=== PATIENT | female | born 1970 | race Caucasian/White ===

== ENCOUNTER 2017-03-07 12:54 | Emergency (ER) | payer BC, OTHER ==
[~2017-03-07] VITALS: Ht 165.1 cm; Wt 87.3 kg
[~2017-03-07 12:54] MED LIST: /TRAZ15TA PO; KLON0.5T PO; PROZ20CA11 PO
[2017-03-07] MEDS ORDERED: CITA20TA4 (13:04)
[2017-03-07] MEDS ORDERED: LISI10TA4 (13:04)
[2017-03-07] MEDS ORDERED: CLON0.5T (13:04)
[2017-03-07 14:03] LABS: MEAN CORPUSCULAR HEMOGLOBIN 30.2 pg (27.0-33.0); MEAN CORPUSCULAR HGB CONC 34.2 g/dl (32.0-36.5); MEAN CORPUSCULAR VOLUME 88.3 fl (80.0-96.0); RED CELL DISTRIBUTION WIDTH 14.4 % (11.5-14.5); WHITE BLOOD COUNT 7.5 K/mm3 (4.0-10.0)
[2017-03-07 14:11] LABS: METHADONE URINE NEGATIVE (NEGATIVE)
[2017-03-07 14:41] LABS: ALBUMIN 3.4 GM/DL (3.2-5.2); ALBUMIN/GLOBULIN RATIO 1.03 (1.00-1.93); ALKALINE PHOSPHATASE 80 U/L (45-117); ALT/SGPT 20 U/L (12-78); ANION GAP 5 MEQ/L (8-16); AST/SGOT 16 U/L (15-37); BILIRUBIN,DIRECT < 0.1 MG/DL (0.0-0.2); BILIRUBIN,TOTAL 0.3 MG/DL (0.2-1.0); BLOOD UREA NITROGEN 9 MG/DL (7-18); CALCIUM LEVEL 8.7 MG/DL (8.5-10.1); CARBON DIOXIDE LEVEL 28 MEQ/L (21-32); CHLORIDE LEVEL 108 MEQ/L (98-107); CREATININE FOR GFR 0.62 MG/DL (0.55-1.02); GLOMERULAR FILTRATION RATE > 60.0 (>58); GLUCOSE, FASTING 88 MG/DL (70-105); POTASSIUM SERUM 4.9 MEQ/L (3.5-5.1); SODIUM LEVEL 141 MEQ/L (136-145); TOTAL PROTEIN 6.7 GM/DL (6.4-8.2)
[2017-03-07] MEDS ORDERED: ATIV1TAB10 PO (14:49)
[2017-03-07 15:16] VITALS: BP 155/83
== END 2017-03-07 15:17 | disposition home or self-care (01) ==
LOC: M ED 12:54
DX: F32.9 Major depressive disorder, single episode, unspecified (principal); I10 Essential (primary) hypertension; F17.200 Nicotine dependence, unspecified, uncomplicated; F12.10 Cannabis abuse, uncomplicated; Z79.899 Other long term (current) drug therapy

== ENCOUNTER 2017-06-12 10:45 | Emergency (ER) | payer OTHER ==
[~2017-06-12] VITALS: Ht 172.7 cm; Wt 81.8 kg
[~2017-06-12 10:45] MED LIST changes: +ATIV1TAB10 PO; +CITA20TA4; +CLON0.5T; +LISI10TA4
[2017-06-12 12:03] LABS: BASO # 0.1 10^3/uL (0.0-0.2); BASO % 0.6 % (0.0-1.0); EOS # 0.2 10^3/uL (0.0-0.50); EOS % 1.9 % (0.0-3.0); IMMATURE GRANULOCYTE % 0.3 % (0-0); LYMPH # 1.3 10^3/uL (1.5-4.5); LYMPH % 13.8 % (24.0-44.0); MEAN CORPUSCULAR HEMOGLOBIN 29.1 pg (27.0-33.0); MEAN CORPUSCULAR HGB CONC 33.2 g/dl (32.0-36.5); MEAN CORPUSCULAR VOLUME 87.7 fl (80.0-96.0); MONO # 0.6 10^3/uL (0.0-0.8); MONO % 6.5 % (0.0-5.0); NEUTROPHILS # 7.1 10^3/uL (1.8-7.7); NEUTROPHILS % 76.9 % (36.0-66.0); PLATELET COUNT, AUTOMATED 276 10^3/uL (150-450); RED CELL DISTRIBUTION WIDTH 14.2 % (11.5-14.5); WHITE BLOOD COUNT 9.3 10^3/uL (4.0-10.0)
[2017-06-12 12:23] LABS: INR 0.93
[2017-06-12 12:28] LABS: ANION GAP 8 MEQ/L (8-16); BLOOD UREA NITROGEN 9 MG/DL (7-18); CALCIUM LEVEL 8.6 MG/DL (8.5-10.1); CARBON DIOXIDE LEVEL 24 MEQ/L (21-32); CHLORIDE LEVEL 110 MEQ/L (98-107); GLOMERULAR FILTRATION RATE > 60.0 (>58); GLUCOSE, FASTING 97 MG/DL (70-105); POTASSIUM SERUM 4.2 MEQ/L (3.5-5.1); SODIUM LEVEL 142 MEQ/L (136-145)
--- NOTE | 2017-06-12 12:36 | ECGEPIP ---
Stationary ECG Study [facility] - ED Test Date: 2017-06-12 Pat Name: PRANAV WILDER Department: Room: - Gender: F [employer] Associate: lizz : 1970 Requested By: EUGENIO Hong Order Number: [id number] Reading MD: Hannah Agarwal Measurements Intervals [place] Rate: 80 P: 38 KS: 165 QRS: 32 QRSD: 93 T: 32 QT: 376 QTc: 436 Interpretive Statements SINUS RHYTHM INCREASED RATE 07/18/13 Electronically Signed On 06-12-2017 12:36:38 EST by Hannah Agarwal
--- NOTE | 2017-06-12 12:41 | REP ---
Chest two views HISTORY: Dizziness Comparison: None The lungs are clear. The heart is normal in size. The pulmonary vasculature is normal in appearance. The bony structure is intact. IMPRESSION: No acute disease. Signed by Orlando Haq MD 06/12/2017 12:34 P
[2017-06-12] MEDS ORDERED: NS 1,000 ML IV ONE (13:00)
[2017-06-12] MEDS ORDERED: ISOVUE-370 76% 100ML VIAL (Q9967) As Ordered ONE (13:05)
--- NOTE | 2017-06-12 13:44 | REP ---
CT Head without contrast HISTORY: Dizziness COMPARISON: None There is no intraparenchymal hemorrhage, acute infarct, mass or midline shift. The ventricular system is normal in appearance. There is no extra cerebral collection. There is no fracture. The visualized sinuses are clear. IMPRESSION: There is no intracranial lesion. Signed by Orlando Haq MD 06/12/2017 01:35 P
--- NOTE | 2017-06-12 14:12 | REP ---
CT ANGIO OF THE HEAD: HISTORY: Dizziness. CONTRAST: Isovue 370, 75 mL. There is a possible small 1.4 mm aneurysm versus loop at the origin of the right posterior cerebral artery. There is no other definite aneurysm or arteriovenous malformation. There are no atherosclerotic lesions. There is origin of the left posterior cerebral artery. The major intracranial vessels are patent. The right vertebral artery is dominant. IMPRESSION: There is a possible 1.4 mm aneurysm versus loop at the origin of the right posterior cerebral artery. Signed by Orlando Haq MD 06/12/2017 02:27 P
--- NOTE | 2017-06-12 20:03 | REP ---
MRI BRAIN WITHOUT CONTRAST: HISTORY: Aneurysm. COMPARISON: CT 06/12/2017 Several punctate areas of increased signal intensity on T2-weighted images are present in the subcortical white matter. This represents small vessel ischemic disease. There is no intraparenchymal hemorrhage, infarct, mass or midline shift. The sella turcica is partially empty. The ventricular system is normal in appearance. There is no extracerebral collection. Mucosal thickening is present in the left maxillary sinus. A retention cyst is present in the right maxillary sinus. IMPRESSION: Minimal small vessel ischemic disease. Signed by Orlando Haq MD 06/13/2017 08:11 A
--- NOTE | 2017-06-12 20:20 | REPUSA ---
MR angiogram of the brain clinical history: possible aneurysm. Technique: [id number] MRA images of the brain were obtained without administration of contrast. 3 -D MIP images were also obtained. Findings: The vascular structures extending from the distal carotid and vertebrobasilar arterial syst ems, through the [place] of [place], demonstrate normal caliber and contour. The right vertebral artery dominant. There is a tiny aneurysm in the right posterior communicating artery, measuring approximat gisela 6 mm There is no evidence of stenosis or thrombosis. 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
[2017-06-12 20:33] VITALS: BP 148/87
--- NOTE | 2017-06-13 08:06 | ED PDOC ---
Post-Departure Follow-Up radiology report faxed to Dr. Bassett; Hannah Lyle MD Jun 13, 2017 08:06
== END 2017-06-12 21:12 | disposition home or self-care (01) ==
LOC: EDBD 10:45 → M ED 10:45
DX: R42 Dizziness and giddiness (principal); I67.1 Cerebral aneurysm, nonruptured; I10 Essential (primary) hypertension; F41.9 Anxiety disorder, unspecified; F32.9 Major depressive disorder, single episode, unspecified; G43.909 Migraine, unspecified, not intractable, without status migrainosus; Z87.01 Personal history of pneumonia (recurrent); F17.200 Nicotine dependence, unspecified, uncomplicated; F12.10 Cannabis abuse, uncomplicated; Z82.49 Family history of ischemic heart disease and other diseases of the circulatory system; Z79.899 Other long term (current) drug therapy
CPT/HCPCS: 70450; 70496; 70544; 70551; 71020; 80048; 81001; 83605; 83735; 85025; 85610; 93000; 93041; 94760; 99285; Q9967

== ENCOUNTER 2018-07-19 18:29 | Emergency (ER) | payer OTHER ==
[~2018-07-19] VITALS: Ht 170.2 cm; Wt 90.9 kg
[~2018-07-19 18:29] MED LIST changes: -CLON0.5T; +CLON0.5T8
[2018-07-19] MEDS ORDERED: IBUPROFEN 600 MG TAB PO ONE (19:30)
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
[2018-07-19 20:39] VITALS: BP 121/75
== END 2018-07-19 20:46 | disposition home or self-care (01) ==
LOC: M ED 18:29
DX: M19.041 Primary osteoarthritis, right hand (principal); I10 Essential (primary) hypertension; Z79.899 Other long term (current) drug therapy; F17.210 Nicotine dependence, cigarettes, uncomplicated